=== PATIENT | female | born 1975 | race Caucasian/White ===

== ENCOUNTER 2020-10-04 09:55 | Outpatient (CLI) | payer MEDICARE, SELFPAY ==
--- NOTE | ~2020-10-04 | MR_ITS ---
EXAMINATION: MR lumbar spine wo con DATE: 10/04/2020 11:28 INDICATION: Ankylosing spondylitis of unspecified sites in spine. Left leg pain. TECHNIQUE: Magnetic resonance imaging (MRI) of the lumbar spine was performed without intravenous con trast. Sequences included sagittal T2-weighted FSE, sagittal T2-weighted FS FSE, sagittal T1-weighted FSE, and axial T2-weighted FSE. COMPARISON: Lumbar spine MRI 06/01/2015 FINDINGS: Bone alignment is normal. Vertebral body heights are normal. There are changes of anterior and posterior fusion procedures from L4 to S1 with discectomies, interbody bone graft, and pedicle sc rews. There is severely decreased disc height at T11-T12 with endplate remodeling. The distal spinal cord signal intensity is normal. The conus medullaris is at T12-L1. The following disc levels are spe cifically discussed: L1-L2: There is a central protrusion. There is no facet joint osteoarthritis. There is no neural fora cher stenosis. There is no central canal stenosis. L2-L3: There is a right foraminal protrusion. There is mild bilateral facet joint osteoarthritis. The re is mild right neural foraminal stenosis. There is no central canal stenosis. L3-L4: There is a right foraminal protrusion. There is mild bilateral facet joint hypertrophy. There is mild right neural foraminal stenosis. There is no central canal stenosis. L4-L5: There is no facet joint hypertrophy. There is no neural foraminal stenosis. There is no centra l canal stenosis. L5-S1: There is no facet joint hypertrophy. There is no neural foraminal stenosis. There is no centra l canal stenosis. IMPRESSION: 1. Mild lumbar spondylosis, stable from 06/01/15. 2. Anterior and posterior fusion procedures from L4 to S1. Reviewed, dictated and finalized at location A.
--- NOTE | ~2020-10-04 | MR_ITS ---
EXAMINATION: MR cervical spine wo con DATE: 10/04/2020 11:28 INDICATION: Ankylosing spondylitis of unspecified sites in spine. Neck pain. TECHNIQUE: Magnetic resonance imaging (MRI) of the cervical spine was performed without intravenous c ontrast. Sequences included sagittal T2-weighted FSE, sagittal T2-weighted FS FSE, sagittal T1-weight ed FSE, axial MERGE, and axial T2-weighted FSE. COMPARISON: Cervical spine MRI 11/03/2014 FINDINGS: There is kyphosis of cervical spine. There is 2 mm anterolisthesis of C3 on C4, 4 mm retrol isthesis of C4 on C5, and 3 mm anterolisthesis of C7 on T1. There is moderately decreased disc height at C3-C4, severely decreased disc height at C4-C5, and moderately decreased disc height at C7-T1 wit h endplate remodeling. At C3-C4, there is increased T2-weighted signal intensity in the spinal cord, consistent with myelomalacia. The following disc levels are specifically discussed: C2-C3: There is a central protrusion. There is moderate right uncovertebral joint osteoarthritis. The re is severe bilateral facet joint osteoarthritis. There is mild right neural foraminal stenosis. The re is mild central canal stenosis. C3-C4: The disc is bulging. There is severe bilateral uncovertebral joint osteoarthritis. There is se brianna bilateral facet joint osteoarthritis. There is moderate bilateral neural foraminal stenosis. The re is severe central canal stenosis with ventral and dorsal indentation of the spinal cord and increa sed T2-weighted signal intensity in the spinal cord. C4-C5: The disc does not extend beyond the endplate margin. There is severe bilateral uncovertebral j oint osteoarthritis. There is ankylosis of the facet joints with severe right and moderate left hyper trophy. There is moderate right and mild left neural foraminal stenosis. There is mild central canal stenosis with ventral indentation of spinal cord. C5-C6: There is mild bilateral uncovertebral joint hypertrophy. There is mild left facet joint osteoa rthritis. There is mild left neural foraminal stenosis. There is no central canal stenosis. C6-C7: There is mild bilateral uncovertebral joint hypertrophy. There is no facet joint osteoarthriti s. There is mild bilateral neural foraminal stenosis. There is mild central canal stenosis. C7-T1: The disc is bulging. There is severe bilateral uncovertebral joint osteoarthritis. There is se brianna bilateral facet joint osteoarthritis. There is moderate bilateral neural foraminal stenosis. The re is mild central canal stenosis. IMPRESSION: 1. Myelomalacia at C3-C4, new from 11/03/2014. 2. Severe cervical spondylosis, worsened from 11/03/2014. 3. Anterior fusion procedure from C5 to C7. Reviewed, dictated and finalized at location A.
== END 2020-10-04 09:56 | disposition home or self-care (01) ==
LOC: CHSIMG 09:58
PROVIDERS: PCP Family Medicine; Visit Provider Family Medicine
DX: M45.0 Ankylosing spondylitis of multiple sites in spine (principal)
CPT/HCPCS: 72141; 72148

== ENCOUNTER 2021-02-09 13:41 | Outpatient (CLI) | payer MEDICARE, SELFPAY ==
--- NOTE | ~2021-02-09 | XR_ITS ---
XR shoulder LT min 2V DATE: 02/09/2021 14:07 INDICATION: Left shoulder pain 6 months after injury TECHNIQUE: 5 views COMPARISON: None FINDINGS: No fracture or dislocation, periosteal reaction or bone destruction or abnormal soft tissue calcification. Normal alignment at the left acromioclavicular and glenohumeral joints. IMPRESSION: Negative Reviewed, dictated and finalized at location A. [employer] IMPRESSION: Negative
== END 2021-02-09 13:42 | disposition home or self-care (01) ==
LOC: CHSIMG 13:44
PROVIDERS: PCP Family Medicine; Visit Provider Nurse Practitioner Family
DX: M25.512 Pain in left shoulder (principal)
CPT/HCPCS: 73030

== ENCOUNTER 2021-02-20 10:16 | Outpatient (CLI) | payer MEDICARE, SELFPAY ==
--- NOTE | ~2021-02-20 | MR_ITS ---
EXAMINATION: MR shoulder LT wo con DATE: 02/20/2021 11:05 INDICATION: Left shoulder pain TECHNIQUE: Magnetic resonance imaging (MRI) of the left shoulder was performed without intravenous co ntrast. Sequences included axial PD-weighted FS FSE, coronal oblique PD-weighted FS FSE, coronal obli que T2-weighted FS FSE, sagittal PD-weighted FS FSE, and sagittal T1-weighted SE. COMPARISON: None. FINDINGS: Coracoacromial arch: The acromion undersurface is curved in morphology (type II). The coracoacromial ligament is normal. M ild acromioclavicular osteoarthritis. Rotator cuff: Mild supraspinatus tendinopathy with small mild articular sided tear involving no greater than one th ird of the tendon thickness which extends 1 cm AP along the superior facet footplate. The infraspinat us, teres minor and subscapularis tendons are normal. Normal rotator cuff muscle bulk and signal. Biceps tendon, glenoid labrum and glenohumeral cartilage: Long head of the biceps tendon is normal. Small tear at the chondral labral junction of the posterior superior glenoid labrum. Small focus of increased signal within the anterosuperior labrum mucosal fo r labral tear versus normal sublabral foramen. The labrum and cartilage or otherwise normal. Fluid: Physiologic amount of fluid in the glenohumeral joint and biceps tendon sheath. No loose osteochondra l bodies. No abnormal fluid signal in the subacromial/subdeltoid bursa to suggest bursitis. Bones: Normal marrow signal with no edema, fracture or abnormal marrow replacing process. IMPRESSION: 1. Mild supraspinatus tendinopathy with small shallow rim rent tear along the articular side of the s uperior facet footplate. 2. Small tear at the chondral labral junction of the posterior superior glenoid labrum and equivocal tear versus normal sublabral foramen at the anterosuperior labrum. Reviewed, dictated and finalized at location A. [employer]SULTANT IMPRESSION: 1. Mild supraspinatus tendinopathy with small shallow rim rent tear along the a rticular side of the superior facet footplate. 2. Small tear at the chondral labral junction of the posterior superior glenoid labrum and equivocal tear versus normal sublabral foramen at the anterosuperio r labrum.
== END 2021-02-20 10:17 | disposition home or self-care (01) ==
LOC: CHSIMG 10:18
PROVIDERS: PCP Family Medicine; Visit Provider Nurse Practitioner Family
DX: M25.512 Pain in left shoulder (principal); M79.89 Other specified soft tissue disorders; M89.8X9 Other specified disorders of bone, unspecified site
CPT/HCPCS: 73221

== ENCOUNTER 2021-03-15 11:03 | Emergency (ER) | payer MEDICARE, SELFPAY ==
[2021-03-15 11:04] VITALS: BP 180/110; PULSE 109; RESP 16; TEMP 36.4; O2SAT 99
[2021-03-15] MEDS: KETOROLAC (*BKC) 60 MG/2 ML VIAL IM (12:29)
[2021-03-15] MEDS: methylPREDNISolone SOD SUCC 125 MG VIAL IM (12:29)
--- NOTE | 2021-03-15 15:46 | ED.GENADULT ---
HPI - General Adult General Chief complaint: Extremity Injury, Upper <Galina Cunningham PA-C - Last Filed: 03/15/21 16:30> Stated complaint: shoulder pain <Galina Cunningham PA-C - Last Filed: 03/15/21 16:30> Time Seen by Provider: 03/15/21 11:41 <Galina Cunningham PA-C - Last Filed: 03/15/21 16:30> Source: patient <Galina Cunningham PA-C - Last Filed: 03/15/21 16:30> Mode of arrival: ambulatory <MICHELLE Pugh Last Filed: 03/15/21 16:30> Limitations: no limitations <Galina Cunningham PA-C - Last Filed: 03/15/21 16:30> History of Present Illness HPI narrative: Patient is a 45-year-old female with worsening complaints of left shoulder over the past months that began June 2020. Patient reports having MRI done last month and was diagnosed with torn rotator cuff. Patient reports that she was referred to Dr. Guo, Apr 09. She reports she had an appointment with her primary care who has been managing her the past 9 months, but it was moved to next week. Patient reports that her primary care has not refilled her Vicodin in over one month and she is sick and tired of being in pain. She reports taking lyrica but denies other pain medications. She reports she had a cervical fusion and has had many fusions to her spine and they thought it would help her shoulder but it hasn't. She reports the spinal specialist told her it is not related. She thinks she needs another MRI or and injection or something. She denies recent injury. <Galina Cunningham PA-C - Last Filed: 03/15/21 16:30> Related Data Allergies/adverse reactions: Allergies Allergy/AdvReac Type Severity Reaction Status Date / Time adhesive Allergy Intermediate Unknown Verified 03/15/21 11:41 adhesive tape Allergy Intermediate Unknown Verified 03/15/21 11:41 latex Allergy Intermediate Unknown Verified 03/15/21 11:41 Cephalosporins Allergy Mild Unknown Verified 03/15/21 11:41 cephalexin Allergy Unknown Unknown Verified 03/15/21 11:41 nickel Allergy Unknown Unknown Verified 03/15/21 11:41 plastic Allergy Intermediate Unknown Uncoded 03/15/21 11:41 <Galina Cunningham PA-C - Last Filed: 03/15/21 16:30> Review of Systems Review of Systems: CONSTITUTIONAL: Denies fever, chills, or sweats. EYES: Denies visual changes, redness, or discharge. ENT: Denies rhinorrhea, congestion, sore throat, or otalgia. CARDIOVASCULAR: Denies chest pain, palpitations, or edema. RESPIRATORY: Denies cough or dyspnea. GASTROINTESTINAL: Denies abdominal pain, nausea, vomiting, or diarrhea. GENITOURINARY: Denies dysuria or hematuria. SKIN: Denies rash or itching. MUSCULOSKELETAL: Reports left shoulder pain denies back pain, joint pain, or myalgia. NEUROLOGIC: Denies headache, numbness, dizziness, or weakness. PSYCHIATRIC: Denies anxiety or depression. <Galina Cunningham PA-C - Last Filed: 03/15/21 16:30> [facility] Past Medical History Medical History: Medical History (Updated 03/15/21 @ 12:21 by Galina Cunningham PA-C) Anemia Cervical vertebral fusion Degenerative disc disease Dorsalgia MELISSA (generalized anxiety disorder) Hypothyroidism Inflammatory arthritis Major depressive disorder, recurrent Nicotine dependence <Galina Cunningham PA-C - Last Filed: 03/15/21 16:30> Surgical History Surgical History: Surgical History (Updated 02/09/21 @ 13:07 by Marva Monsivais MA) History of lumbar fusion S/P spinal surgery <Galina Cunningham PA-C - Last Filed: 03/15/21 16:30> Family History Family History: Family History Mother Family history of chronic obstructive pulmonary disease Father Hypertension <Galina Cunningham PA-C - Last Filed: 03/15/21 16:30> Social History Social History: Social History Smoking packs per day: 1 Smoking cigarettes per day: 20.0 Years smoked: 25 Smoking pack-years: 25.00 Smoking status: Current every day
== END 2021-03-15 12:48 | disposition home or self-care (01) ==
PROVIDERS: Emergency Provider Emergency Medicine; PCP Family Medicine
DX: M75.102 Unspecified rotator cuff tear or rupture of left shoulder, not specified as traumatic (principal); S43.431A Superior glenoid labrum lesion of right shoulder, initial encounter; E03.9 Hypothyroidism, unspecified; F41.1 Generalized anxiety disorder; F33.9 Major depressive disorder, recurrent, unspecified; Z98.1 Arthrodesis status; Z86.2 Personal history of diseases of the blood and blood-forming organs and certain disorders involving the immune mechanism; F17.210 Nicotine dependence, cigarettes, uncomplicated; X58.XXXA Exposure to other specified factors, initial encounter
CPT/HCPCS: 96372; 99284; J1885; J2930